=== PATIENT | female | born 1975 | race Caucasian/White ===

== ENCOUNTER 2019-11-03 13:26 | Outpatient (CLI) | payer OTHER, SELFPAY ==
--- NOTE | 2019-11-03 14:06 | XR_ITS ---
WS: [id number] Lumbar spine, 3 views, 11/03/2019 Clinical Data: BACK PAIN Comparison: Lumbar spine, 07/29/2010 Findings: No compression fractures or subluxation is seen. No disc space narrowing is seen. The transverse proc esses and SI joints are normal. Minimal anterior osteoarthritic spurring is seen from L3 through L5. XR/XR lumbar spine 2-3V* [id number] Impression: Minimal osteoarthritis L3-L5.
== END 2019-11-03 13:27 | disposition home or self-care (01) ==
LOC: RADWPI 13:31
PROVIDERS: Family Provider Electrodiagnostic Medicine; PCP Electrodiagnostic Medicine; Visit Provider Electrodiagnostic Medicine
DX: M47.816 Spondylosis without myelopathy or radiculopathy, lumbar region (principal)
CPT/HCPCS: 72100

== ENCOUNTER 2019-11-08 13:51 | Outpatient (CLI) | payer OTHER, SELFPAY ==
--- NOTE | 2019-11-08 14:15 | XR_ITS ---
WS: [id number] RIGHT FOOT: 3 VIEW(S) TECHNIQUE: PA, oblique and lateral. HISTORY: PAIN IN JOINT INVOLVING ANKLE AND FOOT COMPARISON: None available. No acute fracture or dislocation. Normal tarsal/metatarsal alignment. No soft tissue abnormality or bone destruction. XR/XR foot RT min 3V* [id number] IMPRESSION: Normal RIGHT foot.
== END 2019-11-08 13:52 | disposition home or self-care (01) ==
PROVIDERS: Family Provider Electrodiagnostic Medicine; PCP Electrodiagnostic Medicine; Visit Provider Electrodiagnostic Medicine
DX: M25.571 Pain in right ankle and joints of right foot (principal)
CPT/HCPCS: 73630

== ENCOUNTER 2025-09-01 10:54 | Outpatient (CLI) | payer OTHER, SELFPAY ==
--- NOTE | 2025-09-01 11:03 | CT_ITS ---
WS: [id number] CT ABDOMEN AND PELVIS WITH CONTRAST HISTORY: INCISIONAL HERNIA W/O OBSTRUCTION OR GANGRENE TECHNIQUE: Imaging performed of the abdomen and pelvis with IV contrast. Single phase imaging of the abdomen. Coronal and sagittal reformats are submitted. All CT scans at [facility] use at least one of these dose optimization techniques: automated exposure control; mA and/or kV adjustment per patient size (includes targeted exams where dose is matched to clinical indication); or iterative reconstruction. IV CONTRAST: Omnipaque 350; 100 mL IV. Oral contrast: Yes. DLP: 379.14 mGy.cm COMPARISON: 09/23/2017 Lower thorax: Lung bases are clear. Heart is normal size. No hiatal hernia. Liver/biliary system: Normal size liver. There are a few scattered low- attenuation masses within the liver. These were also present on 09/23/2017 and most consistent with cysts or hemangiomas. Some of these are too small to characterize but they are stable. Normal portal vein. No intrahepatic duct dila tation. Gallbladder: Normal. No gallstones or wall thickening. No pericholecystic fluid. Pancreas: Normal size pancreas and pancreatic duct. No adjacent inflammation. Spleen: Normal size spleen. No mass or infarct. Adrenal glands: Normal. Right kidney: No change in the upper pole RIGHT renal cyst measuring 11 mm. Extrarenal pelvis on the RIGHT. Nonobstructing 4 mm calcification in the mid kidney. Left kidney: Normal. Aorta: Normal. Lymphadenopathy: None. Free fluid: None. GI tract: Normally distended stomach. No small bowel obstruction. The appendix is not definitely identified. The cecum is very low within the RIGHT pelvis. No GI tract obstruction. Abdominal wall: Tiny fat-containing umbilical hernia. Pelvis: Prior hysterectomy. No free fluid or adenopathy. Normal urinary bladder. Bones: Unremarkable. CT/CT abdomen pelvis w con* [id number] IMPRESSION: 1. Fat-containing umbilical hernia. This is a small hernia with no adjacent in flammation. 2. No GI tract obstruction. 3. Moderate constipation in the RIGHT colon. Cecum is deep within the pelvis. 4. No renal obstruction. No change in the RIGHT renal cyst superior pole. 5. Stable low-attenuation nodules within the liver consistent with small cysts or hemangiomas.
[2025-09-01] MEDS: iohexol 350 mg/mL 500 mL Btl (per mL) PO (11:11)
[2025-09-01] MEDS: iohexol 350 mg/mL 500 mL Btl (per mL) IV (11:11)
== END 2025-09-01 10:55 | disposition home or self-care (01) ==
LOC: RAD 10:56
PROVIDERS: PCP Electrodiagnostic Medicine; Visit Provider Electrodiagnostic Medicine
DX: K43.2 Incisional hernia without obstruction or gangrene (principal)
CPT/HCPCS: 74177

== ENCOUNTER 2025-09-26 12:05 | Outpatient (CLI) | payer OTHER, SELFPAY ==
--- NOTE | 2025-09-26 12:20 | MR_ITS ---
WS: [id number] MRI LUMBAR SPINE NONCONTRAST HISTORY: chronic back pain, LEFT leg numbness. COMPARISON: 06/02/2014 TECHNIQUE: Sagittal and axial multisequence imaging is submitted. L3 anterolisthesis by 2 mm. No fracture or marrow edema. Mild disc desiccation at L4-5. Conus medullaris tapers and terminates normally at T12. L1-L2: Mild disc bulging with mild facet and ligamentum flavum hypertrophy. Very minimal foraminal narrowing. L2-L3: Mild annular disc bulging with a disc protrusion extending into the LEFT foramen contacting the exiting LEFT L2 nerve root. Complete effacement of fat in the LEFT foramen. Mild disc bulging extending into the RIGHT foramen. Mild central, subarticular recess and RIGHT foraminal stenosis. Moderate to severe LEFT foraminal stenosis. L3-L4: Diffuse disc bulging. Broad-based LEFT foraminal disc protrusion with annular fissure. Diffuse disc bulging encroaching upon the ventral thecal sac and subarticular recesses. Moderate ligamentum flavum and marked facet joint arthritis. Mild progression of stenosis and facet disease since 2013. Mild to moderate central, subarticular recess and bilateral foraminal stenosis. L4-L5: Mild disc bulging with a central disc protrusion. Disc protrusion contacts the traversing L5 nerve roots in the subarticular recesses. Mild central, subarticular recess and bilateral foraminal stenosis. L5-S1: Mild disc bulging with a shallow RIGHT foraminal disc protrusion. Disc protrusion slightly improved since 2013. No significant stenosis. Mild bilateral facet joint arthropathy. MR/MR lumbar spine wo con* [id number] IMPRESSION: 1. LEFT foraminal disc protrusion at L2-3 effacing fat and contacting the exit ing LEFT L2 nerve root. Disc protrusion versus disc fragment in the LEFT forame n. 2. Mild central, subarticular recess and RIGHT foraminal stenosis at L2-3. Mod erate to severe LEFT foraminal stenosis. 3. Broad-based LEFT foraminal disc protrusion with annular fissure at L3-4. Mi ld to moderate central, subarticular recess and bilateral foraminal stenosis at L3-4. Mild progression of facet disease and stenosis since the prior study. 4. Central disc protrusion at L4-5 contacts the traversing L5 nerve roots in t he subarticular recesses. Mild central, subarticular recess and bilateral edgardo inal stenosis. 5. Shallow RIGHT foraminal disc protrusion at L5-S1 has slightly decreased in size since 2013. 6. Shallow RIGHT foraminal disc protrusion L5-S1. No stenosis.
== END 2025-09-26 12:06 | disposition home or self-care (01) ==
PROVIDERS: PCP Electrodiagnostic Medicine; Visit Provider Electrodiagnostic Medicine
DX: M51.362 Other intervertebral disc degeneration, lumbar region with discogenic back pain and lower extremity pain (principal); M48.061 Spinal stenosis, lumbar region without neurogenic claudication; M51.372 Other intervertebral disc degeneration, lumbosacral region with discogenic back pain and lower extremity pain; M47.816 Spondylosis without myelopathy or radiculopathy, lumbar region; M47.817 Spondylosis without myelopathy or radiculopathy, lumbosacral region
CPT/HCPCS: 72148